=== PATIENT | male | born 1980 | race Hispanic/Latino ===

== ENCOUNTER 2023-10-23 18:07 | Emergency (ER) | payer OTHER ==
[~2023-10-23] VITALS: Ht 175.3 cm; Wt 99.8 kg
[2023-10-23 18:37] VITALS: BP 153/78; PULSE 79; RESP 18; O2SAT 98
[2023-10-23 22:03] LABS: APPEARANCE,URINE CLEAR (CLEAR); BILIRUBIN,URINE NEGATIVE (NEGATIVE); COLOR,URINE LIGHT-YELLOW (YELLOW); GLUCOSE, URINE (UA) 30 mg/dL (NEGATIVE); KETONES,URINE NEGATIVE (NEGATIVE); LEUKOCYTE ESTERASE ,URINE NEGATIVE Leu/uL (NEGATIVE); NITRATE,URINE NEGATIVE (NEGATIVE); OCCULT BLOOD,URINE SMALL (NEGATIVE); PH,URINE 6.5 (5.0-8.0); PROTEIN,URINE NEGATIVE (NEGATIVE)
[2023-10-23 22:04] LABS: ADD UA MICROSCOPIC YES
[2023-10-23 22:05] LABS: MUCUS,URINE RARE LPF (None Seen); RBC,URINE 26-50 /HPF (0-1); WBC,URINE 0-1 /HPF (0-1)
[2023-10-23] MEDS ORDERED: IBUP-2070 PO (23:30)
[2023-10-23] MEDS ORDERED: TAMS-1 PO (23:30)
[2023-10-23] MEDS ORDERED: ONDA4TAB10 PO (23:30)
[2023-10-23] MEDS: IBUPROFEN 600 MG TABLET PO ONE (23:56)
[2023-10-23] MEDS: TAMSULOSIN HCL 0.4 MG CAP.ER.24H PO ONE (23:56)
== END 2023-10-24 00:20 | disposition home or self-care (01) ==
LOC: EDH 18:07
DX: N20.0 Calculus of kidney (principal); Z79.899 Other long term (current) drug therapy
CPT/HCPCS: 74176; 81001